=== PATIENT | female | born 1995 | race African-American/Black ===

== ENCOUNTER 2023-08-30 10:12 | Emergency (ER) | payer OTHER ==
[2023-08-30 10:22] VITALS: BP 135/86; PULSE 74; RESP 18; TEMP 97.5; BMI 42.7
[2023-08-30 11:06] LABS: EOS % 2.6 % (0-4.5); HEMATOCRIT 38.9 % (32.4-45.2); HEMOGLOBIN 12.8 GM/dL (10.7-15.3); LYMPH % 40.8 % (8-40); MCH 26.5 pg (25.7-33.7); MCHC 32.8 g/dl (32.0-36.0); MEAN CELL VOLUME 80.6 fl (80-96); MEAN PLT VOLUME 8.1 fl (7.5-11.1); MONO % 3.3 % (3.8-10.2); NEUT % 52.3 % (42.8-82.8); PLATELET COUNT 290 10^3/uL (134-434); RBC 4.83 M/mm3 (3.60-5.2); RDW 14.8 % (11.6-15.6); WHITE BLOOD COUNT 6.3 K/mm3 (4.0-10.0)
[2023-08-30 11:21] LABS: POTASSIUM 4.4 mmol/L (3.5-5.1)
[2023-08-30 11:23] LABS: CALCIUM 9.5 mg/dL (8.5-10.1)
[2023-08-30 11:24] LABS: ALBUMIN 3.8 g/dl (3.4-5.0); BLOOD UREA NITROGEN 11.3 mg/dL (7-18)
[2023-08-30 11:29] LABS: BILIRUBIN,TOTAL 0.2 mg/dL (0.2-1)
[2023-08-30 11:30] LABS: INR 1.02 (0.83-1.09); PROTHROMBIN TIME (PATIENT) 11.5 SEC (9.7-13.0)
[2023-08-30 11:42] LABS: EPI CELLS 18 /uL (0-25.1); HYALINE CASTS 0 /uL (0-3.1); URINE APPEARANCE CLOUDY; URINE BACTERIA 37 /uL (0-1359); URINE BILIRUBIN NEGATIVE (NEGATIVE); URINE COLOR RED; URINE GLUCOSE (UA) NEGATIVE (NEGATIVE); URINE KETONE NEGATIVE (NEGATIVE); URINE LEUK ESTERASE TRACE (NEGATIVE); URINE NITRITE NEGATIVE (NEGATIVE); URINE PROTEIN 1+ (NEGATIVE); URINE RBC 12356 /uL (0-23.9); URINE UROBILINOGEN 0.2 mg/dL (0.2-1.0); URINE WBC 11 /uL (0-25.8)
== END 2023-08-30 15:00 | disposition home or self-care (01) ==
LOC: JER 10:12
DX: N93.9 Abnormal uterine and vaginal bleeding, unspecified (principal); R10.2 Pelvic and perineal pain
CPT/HCPCS: 36415; 76830-TC; 80053; 81003; 85025; 85610; 86850; 86900; 86901; 87086; 99284-25